=== PATIENT | male | born 1975 | race Caucasian/White ===

== ENCOUNTER 2017-09-09 20:14 | Emergency (ER) | payer SELFPAY ==
[~2017-09-09 20:14] MED LIST: DOXY100T PO; LORTA5 PO; SULF-154 PO; Z.0.NO CURRENT MEDS
[2017-09-09 20:24] VITALS: BP 138/76; PULSE 99; RESP 20; TEMP 100.3; O2SAT 96
[2017-09-09 21:13] VITALS: BP 156/66; PULSE 90; RESP 18; TEMP 99.7; O2SAT 97
[2017-09-09] MEDS ORDERED: KETOROLAC TROMETHAMINE 60 MG/2 ML (IM) VIAL IM ONE (21:45)
[2017-09-09] MEDS ORDERED: DEXAMETHASONE 4 MG TAB PO ONE (21:45)
[2017-09-09] MEDS ORDERED: PERC5TAB12 PO (22:53)
[2017-09-09] MEDS ORDERED: NAPR500T2 PO (22:53)
[2017-09-09] MEDS ORDERED: MEDR4PAK PO (22:53)
--- NOTE | 2017-09-09 22:54 | PD ---
HPI Chief Complaint: Back/ Neck Pain or Injury Time Seen by Provider: 21:19 Travel History International Travel<30 days: No Contact w/Intl Traveler<30days: No Traveled to known affect area: No History of Present Illness HPI 42-year-old man, several days of right-sided back pain, radiates on the right leg, worse with certain movements, persistent. No numbness tingling or weakness. History Past Medical History Medical History: Denies Significant Hx Tetanus Vaccination: < 5 Years Influenza Vaccination: Yes Past Surgical History Surgical History: No Previous Surgery Social History Alcohol Use: Yes Tobacco Use: No (quit 2 months ago) Allergies-Medications (Allergen,Severity, Reaction): Coded Allergies: No Known Allergies (Verified Adverse Reaction, Unknown, 09/09/17) Reported Meds & Prescriptions Reported Meds & Active Scripts Active Medrol Dosepak (Methylprednisolone) 4 Mg Dspk 4 Mg PO DIRECTED Per Pharmacist direction Percocet (Oxycodone-Acetaminophen) 5-325 mg Tab 1-2 Tab PO Q6H PRN Naproxen 500 Mg Tab 500 Mg PO BID Review of Systems Except as stated in HPI: all other systems reviewed are Neg Physical Exam Narrative GENERAL: Well-developed, well-nourished, no acute distress. SKIN: Warm and dry. CARDIOVASCULAR: Warm and well perfused. RESPIRATORY: Normal rate and effort. MUSCULOSKELETAL: Normal appearance of back and bilateral lower extremities. No ecchymosis, swelling, bruising. No rashes. Normal muscle bulk and tone. NEUROLOGICAL: Strength full 5/5 and equal in bilateral lower extremities in proximal and distal muscle groups. 5/5 in large toe flexion and extension. Sensation is intact to light touch throughout. Reflexes symmetric. No clonus. PSYCHIATRIC: Appropriate mood and affect; insight and judgment normal. Data Data Last Documented VS Orders Orders Ketorolac Inj (Toradol Inj) (09/09/17 21:45) Dexamethasone (Decadron) (09/09/17 21:45) Ed Discharge Order (09/09/17 22:54) [facility] Medical Decision Making Medical Screen Exam Complete: Yes Emergency Medical Condition: Yes Differential Diagnosis Radiculopathy, back strain or sprain, spasm, herniated disc, other Narrative Course Medical decision making 42-year-old male presents to the emergency department complaining of radicular back pain. Looks well. No evidence of spinal cord compression or red flag symptoms. Diagnosis Primary Impression: Radiculopathy Additional Instructions: Take Naprosyn as prescribed. Take prednisone taper as prescribed. Use of omeprazole to protect her stomach will taking prednisone and Naprosyn. Use Percocet if needed for severe pain. Return to the emergency department for any new or worsening symptoms. Med/Other Pt SpecificInfo: Prescription(s) given Scripts Methylprednisolone Dosepak (Medrol Dosepak) 4 Mg Dspk 4 MG PO DIRECTED, #1 DSPK 0 Refills Per Pharmacist direction Prov: Murtaza Lugo MD 09/09/17 Oxycodone-Acetaminophen (Percocet) 5-325 mg Tab 1-2 TAB PO Q6H Y for PAIN, #21 TAB 0 Refills Prov: Murtaza Lugo MD 09/09/17 Naproxen (Naproxen) 500 Mg Tab 500 MG PO BID, #20 TAB 0 Refills Prov: Murtaza Lugo MD 09/09/17 Disposition: 01 DISCHARGE HOME Condition: Stable Murtaza Lugo MD Sep 09, 2017 22:54
== END 2017-09-09 23:02 | disposition home or self-care (01) ==
LOC: PHED 20:14 → PHEFT 23:02
DX: M54.10 Radiculopathy, site unspecified (principal)
CPT/HCPCS: 96372; 99284; J1885; J8540